=== PATIENT | female | born 1990 | race American Indian/Alaskan Native ===

== ENCOUNTER 2018-07-31 13:28 | Emergency (ER) | payer MEDICAID, OTHER ==
--- NOTE | 2018-07-31 13:32 | Event Note ---
ED Screening Note ED Screening Note: abd pain no bm since last Wed IBS non toxic afebrile This initial assessment/diagnostic orders/clinical plan/treatment(s) is/are subject to change based on patients health status, clinical progression and re- assessment by fellow clinical providers in the ED. Further treatment and workup at subsequent clinical providers discretion. Patient/guardian urged not to elope from the ED as their condition may be serious if not clinically assessed and managed. Initial orders include:
[2018-07-31 13:34] VITALS: BP 132/74
--- NOTE | 2018-07-31 13:55 | Emergency Department Report ---
ED General Adult HPI - General Chief complaint: Abdominal Pain Stated complaint: CONSTIPATION Time Seen by Provider: 07/31/18 13:31 Source: patient Mode of arrival: Ambulatory Limitations: No Limitations - History of Present Illness Initial comments: Patient is 28 years old female with history of constipation. Patient presented to the ER stating that she has been constipated for 6 days. Patient stated that she tried home remedy laxative but no improvement. Patient denied any fever or chills. Patient also denied any nausea or vomiting. Severity scale (0 -10): 10 - Related Data Allergies Allergy/AdvReac Type Severity Reaction Status Date / Time shellfish derived Allergy Rash Verified 07/31/18 13:34 ED Review of Systems ROS: Stated complaint: CONSTIPATION Other details as noted in HPI Comment: All other systems reviewed and negative Constitutional: denies: chills, fever Cardiovascular: denies: chest pain, palpitations Gastrointestinal: constipation. denies: abdominal pain, nausea, vomiting, diarrhea, hematemesis, hematochezia Musculoskeletal: denies: back pain Neurological: denies: headache, weakness ED Past Medical Hx - Past Medical History Hx Asthma: Yes Additional medical history: IBS - Surgical History Past Surgical History?: No - Social History Smoking Status: Current Every Day Smoker Substance Use Type: Alcohol ED Physical Exam - General Limitations: No Limitations General appearance: alert, in no apparent distress - Head Head exam: Present: atraumatic, normocephalic, normal inspection - Eye Eye exam: Present: normal appearance - ENT ENT exam: Present: normal exam - Neck Neck exam: Present: normal inspection, full ROM. Absent: tenderness, meningismus, lymphadenopathy, thyromegaly - Respiratory Respiratory exam: Present: normal lung sounds bilaterally - Cardiovascular Cardiovascular Exam: Present: regular rate, normal rhythm, normal heart sounds - GI/Abdominal GI/Abdominal exam: Present: soft, normal bowel sounds. Absent: distended, tenderness, guarding, rebound, rigid, organomegaly, mass, bruit, pulsatile mass - Extremities Exam Extremities exam: Present: normal inspection, full ROM, normal capillary refill. Absent: pedal edema, calf tenderness - Neurological Exam Neurological exam: Present: alert, oriented X3, CN II-XII intact - Skin Skin exam: Present: warm, intact ED Course Vital Signs 07/31/18 13:33 Temperature 97.9 F Pulse Rate 92 H Respiratory 20 Rate Blood Pressure 132/74 [Right] O2 Sat by Pulse 98 Oximetry ED Medical Decision Making - Lab Data Result diagrams: 07/31/18 13:42 07/31/18 13:42 - Radiology Data Radiology results: report reviewed - Medical Decision Making Patient is 28 years old female with history of constipation. Patient presented to the ER stating that she has been constipated for 6 days. Patient stated that she tried home remedy laxative but no improvement. Patient denied any fever or chills. Patient also denied any nausea or vomiting. Labs reviewed and is unremarkable. Abdominal x-rays show a fecal retention consistent with patient's symptoms. Patient given a prescription for Fleet enema and lactulose and advised to follow-up with her primary care physician in the next 2-3 days. Patient also given a print out about how to prevent constipation and diet that has high fibers. Patient also advised to return to the ER if symptoms are not improved Critical care attestation.: If time is entered above; I have spent that time in minutes in the direct care of this critically ill patient, excluding procedure time. ED Disposition Clinical Impression: Abdominal pain, Constipation Disposition: DC-01 TO HOME OR SELFCARE Is pt being admited?: No Condition: Stable Instructions: Abdominal Pain (ED), Constipation (ED), High Fiber Diet (ED) Referrals: MANISH MAXWELL MD [Primary Care Provider] - 3-5 Days
[2018-07-31 14:14] LABS: Hematocrit 34.1 % (30.3-42.9); Hemoglobin 11.5 gm/dl (10.1-14.3); Mean Corpuscular HGB Conc 34 % (30-34); Mean Corpuscular Volume 100 fl (79-97); Platelet Count 226 K/mm3 (140-440); Red Cell Distribution Width 13.1 % (13.2-15.2)
[2018-07-31 14:24] LABS: BUN/Creatinine Ratio 18; Blood Urea Nitrogen 14 mg/dL (7-17); Calcium 9.5 mg/dL (8.4-10.2); Hemolysis Index 4
[2018-07-31 14:35] LABS: Bilirubin,Urine NEG (Negative); Blood,Urine NEG (Negative); Color,Urine Yellow (Yellow); Mucus,Urine FEW /HPF; Protein,Urine <15 mg/dL mg/dL (Negative); Urobilinogen,Urine < 2.0 mg/dL (<2.0); WBC,Urine < 1.0 /HPF (0.0-6.0)
[2018-07-31 14:41] LABS: HCG Qualitative,Urine Negative (Negative)
[2018-07-31 14:44] LABS: RBC,Urine < 1.0 /HPF (0.0-6.0)
--- NOTE | 2018-07-31 15:04 | XRay Report ---
AP ABDOMEN: HISTORY: Severe constipation, history of irritable bowel syndrome. There is moderate stool throughout the colon and rectum. The abdominal gas pattern is unremarkable. No masses or organomegaly is identified and there is no gross evidence of free air or fluid. No significant soft tissue calcifications are noted. IMPRESSION: Fecal retention.
== END 2018-07-31 15:31 | disposition home or self-care (01) ==
LOC: ED 13:28
DX: R10.9 Unspecified abdominal pain (principal); K59.00 Constipation, unspecified; J45.909 Unspecified asthma, uncomplicated; F17.200 Nicotine dependence, unspecified, uncomplicated; Z91.013 Allergy to seafood
CPT/HCPCS: 36415; 74018; 80048; 81001; 81025; 85027